=== PATIENT | female | born 1985 | race Caucasian/White ===

== ENCOUNTER 2018-08-29 17:21 | Emergency (ER) ==
[2018-08-29 17:26] VITALS: BP 121/67; TEMP 99.2; BMI 34.7
--- NOTE | 2018-08-29 17:49 | ED.PDOC ---
General ED Provider: Dr. BALBIR HERNANDEZ-ER Chief Complaint: Earache Stated Complaint: sushil had allergy symptoms and my right ear is bleeding Time Seen by Physician: 17:47 Mode of Arrival: Walk-In Information Source: Patient Exam Limitations: No limitations Nursing and Triage Documentation Reviewed and Agree: Yes Does patient meet sepsis criteria?: No System Inflammatory Response Syndrome: Not Applicable Sepsis Protocol: For patient's 13 years and over: Temp is 96.8 and below OR 101 and greater Pulse >90 BPM Resp >20/minute Acutely Altered Mental Status Are patient's symptoms suggestive of a new infection, such as: -Pneumonia -Skin, Soft Tissue -Endocarditis -UTI -Bone, Joint Infection -Implantable Device -Acute Abdominal Infection -Wound Infection -Meningitis -Blood Stream Catheter Infection -Unknown EENT Complaint Exam - Ear Complaint/Exam Onset/Duration: 24 hrs Symptoms Are: Still present Timing: Constant Initial Severity: Mild Current Severity: Mild Character: Reports: Dull pain, Aching pain Aggravating: Reports: Tugging on ear Alleviating: Reports: None Associated Signs and Symptoms: Reports: Bleeding, URI symptoms. Denies: Ear trauma, Ear swelling, Discharge Related History: Reports: Similar Episode Ear Surgical History: None Vesicles to External Pinna: No Vesicles to Tragus: No Material in Canal: Present: Blood Tympanic Membrane: Dullness, Perforation Differential Diagnoses: Perforated TM Review of Systems - Review Of Systems Constitutional: Reports: No symptoms Eyes: Reports: No symptoms Ears, Nose, Mouth, Throat: Reports: Ear pain, Ear discharge Respiratory: Reports: No symptoms Cardiac: Reports: No symptoms GI: Reports: No symptoms : Reports: No symptoms Musculoskeletal: Reports: No symptoms Skin: Reports: No symptoms Neurological: Reports: No symptoms Endocrine: Reports: No symptoms Hematologic/Lymphatic: Reports: No symptoms All Other Systems: Reviewed and Negative Past Medical History - Past Medical History Previously Healthy: Yes Endocrine: Reports: Unknown Cardiovascular: Reports: Unknown Respiratory: Reports: Unknown Hematological: Reports: Unknown Gastrointestinal: Reports: Unknown Genitourinary: Reports: Unknown Neuro/Psych: Reports: Unknown Musculoskeletal: Reports: Unknown Cancer: Reports: Unknown Last Menstrual Period: 30 DAYS , HASN'T HAD PERIOD YET - Surgical History General Surgical History: Reports: Unknown - Family History Family History: Reports: Unknown - Social History Smoking Status: Never smoker Hx Substance Use: No Alcohol Screening: Occasionally Physical Exam - Physical Exam Appearance: Well-appearing, No pain distress, Well-nourished Pain Distress: Mild Eyes: BRITTANY, EOMI, Conjunctiva clear ENT: Nose normal, Oropharynx normal, Rhinorrhea (right tm shows perforated tm with blood in the canal), Erythema Respiratory: Airway patent Cardiovascular: RRR, Pulses normal, No rub, No murmur GI/: Soft, Nontender, No masses, Bowel sounds normal, No Organomegaly Musculoskeletal: Normal strength, ROM intact, No edema, No calf tenderness Skin: Warm, Dry, Normal color Neurological: Sensation intact Psychiatric: Affect appropriate, Mood appropriate Critical Care Note - Critical Care Note Total Time (mins): 0 Course - Course Vital Signs: Temp Pulse Resp BP Pulse Ox 08/29/18 17:22 99.2 F 64 20 121/67 98 Departure - Departure Time of Disposition: 17:49 Disposition: HOME SELF-CARE Discharge Problem: Perforated tympanic membrane Qualifiers: Laterality: right Qualified Code(s): H72.91 - Unspecified perforation of tympanic membrane, right ear Instructions: Ruptured Eardrum (ED) Condition: Good Pt referred to PMD for follow-up: Yes IPMP verified?: No Additional Instructions: ceftin 500mg bid x 10 days---floxin otic drops 5 drops into the ear bid x 7 days --dry ear precautions---tylenol for pain---you will need to make appt with the clinic to have the ear drum rechecked in a few days Allergies/Adverse Reactions: Allergies No Known Allergies Allergy (Verified 08/29/18 17:26) Home Medications: Ambulatory Orders 1 [No Reported Medications] 08/29/18 Disposition Discussed With: Patient, Family
== END 2018-08-29 18:04 | disposition home or self-care (01) ==
LOC: ED 17:21
DX: H72.91 Unspecified perforation of tympanic membrane, right ear (principal)
CPT/HCPCS: 99282